=== PATIENT | female | born 1975 | race Caucasian/White ===

== ENCOUNTER 2018-02-25 09:17 | Outpatient (CLI) | payer OTHER ==
--- NOTE | 2018-02-25 12:34 | ULT ---
LIMITED NONVASCULAR LEFT LOWER EXTREMITY SOFT TISSUE ULTRASOUND: INDICATIONS: Localized redness and swelling and lump on the lower lateral aspect of the left foreleg for two month s. TECHNIQUE: Brown-scale color Doppler images were obtained of the soft tissues of the left lower lateral foreleg, in the region of palpable interest. FINDINGS: There is subcutaneous edema seen within the region of interest, involving the left lower lateral aspe ct of the foreleg. No drainable fluid collection is evident. IMPRESSION: Soft tissue edema seen within the region of redness and swelling, along the left lower lateral aspect of the left foreleg. No drainable fluid collection is demonstrated. POS: BRIAN
== END 2018-02-25 09:18 | disposition home or self-care (01) ==
LOC: ULT 09:17
PROVIDERS: ATTEND Family Medicine
DX: R22.42 Localized swelling, mass and lump, left lower limb (principal); M79.89 Other specified soft tissue disorders; R60.0 Localized edema
CPT/HCPCS: 76882

== ENCOUNTER 2018-04-14 06:36 | Day surgery (SDC) | payer OTHER ==
[2018-04-11 11:51] VITALS: BMI 47.0
--- NOTE | 2018-04-14 09:10 | OP ---
DATE OF PROCEDURE: 04/14/2018 GI ENDOSCOPY NOTE SURGEON: Escobar Ram M.D. REGULATORY AGENCY DIRECTOR SURGEON: None. PROCEDURE: Esophagogastroduodenoscopy with gastric biopsies. INDICATIONS: 1. Epigastric pain. 2. Gastroesophageal reflux disease. MEDICATIONS: See anesthesia record. FINDINGS: After discussion of the risks, benefits and alternatives of the procedure, informed consen t was obtained and witnessed. Pre-endoscopic cardiopulmonary examination was satisfactory. Timeout was performed before sedation was achieved. Sedation was achieved with anesthesia assistance in the endoscopy unit. A Pentax adult upper endoscope was placed into the oropharynx and passed through the cricopharyngeus under direct visualization. The esophageal mucosa appeared normal throughout with a normal-appearing Z-line. The endoscope was advanced into the stomach. Forward and retroflexed view s of the entire gastric mucosa were obtained. In the gastric fundus, there is a medium sized erosion . This was nonbleeding. Surrounding mucosa appears essentially normal. The remainder of the gastri c mucosa appears normal except for some erythema in the antrum, which is patchy in distribution. Bio psies were obtained from the gastric antrum, body and fundus to rule out H. pylori infection. The en doscope was passed through the pylorus and into the first and second portions of the duodenum which a ppeared normal. The upper endoscope was then completely withdrawn and the patient allowed to recover . The patient tolerated the procedure well. There were no immediate post-procedure complications. IMPRESSION: 1. Mild erosive gastritis, with single erosion in the gastric fundus and mild antral erythema. Biop sied to rule out Helicobacter pylori. 2. Otherwise, normal esophagogastroduodenoscopy. RECOMMENDATIONS: 1. Increase acid suppression to Protonix 40 mg daily for the next month. 2. Follow up in clinic in 1 month to see how she is doing with this. 3. Follow up biopsy results. If H. pylori is present, treat with triple therapy and confirm eradica tion.
[2018-04-14] MEDS ORDERED: PROPOFOL 200 MG/20 ML VIAL ONE (12:00)
== END 2018-04-14 09:45 | disposition home or self-care (01) ==
LOC: SDC 06:36
PROVIDERS: ATTEND Internal Medicine
PROC: 0DB68ZX Excision of Stomach, Via Natural or Artificial Opening Endoscopic, Diagnostic (ICD-10-PCS; principal; 2018-04-14)
DX: K29.60 Other gastritis without bleeding (principal); K21.9 Gastro-esophageal reflux disease without esophagitis
CPT/HCPCS: 88305; 88312; J2704

== ENCOUNTER 2024-04-08 07:59 | Outpatient (CLI) | payer OTHER | END 2024-04-08 08:00 | disposition home or self-care (01) | LOC: BICMAMMO 07:59 | PROVIDERS: ATTEND Family Medicine | DX: Z12.31 Encounter for screening mammogram for malignant neoplasm of breast (principal) | CPT/HCPCS: 77067 ==

== ENCOUNTER 2024-12-07 06:18 | Day surgery (SDC) | payer OTHER ==
[2024-12-04 10:44] VITALS: BMI 47.0
[2024-12-07] MEDS ORDERED: Lidocaine 1% PF 5 ML VIAL ONE (06:57)
[2024-12-07] MEDS ORDERED: PROPOFOL 60 ML ONE (06:57)
== END 2024-12-07 09:28 | disposition home or self-care (01) ==
LOC: SDC 06:18
PROVIDERS: ATTEND Internal Medicine
PROC: 0DJD8ZZ Inspection of Lower Intestinal Tract, Via Natural or Artificial Opening Endoscopic (ICD-10-PCS; principal; 2024-12-07)
DX: Z12.11 Encounter for screening for malignant neoplasm of colon (principal); R19.5 Other fecal abnormalities; K21.9 Gastro-esophageal reflux disease without esophagitis; K64.8 Other hemorrhoids; D64.9 Anemia, unspecified; I10 Essential (primary) hypertension; E78.5 Hyperlipidemia, unspecified; Z87.891 Personal history of nicotine dependence; Z79.899 Other long term (current) drug therapy
CPT/HCPCS: J2704